=== PATIENT | female | born 2000 | race African-American/Black ===

== ENCOUNTER 2020-06-16 00:32 | Inpatient (IN) ==
[2020-06-16] MEDS ORDERED: ONDANSETRON 4 MG/2 ML VIAL IV PRN (01:43)
[2020-06-16 02:13] LABS: Basophils % 0.4 % (0.0-0.8); Eosinophils # 0.2 10*3/uL (0.0-0.87); Eosinophils % 2.2 % (0.00-10.9); Hematocrit 39.9 VOL% (35.7-47.0); Hemoglobin 12.7 GM/DL (12.0-16.0); Immature Granulocytes % 1.7 %; Immature Granulocytes Absolute 0.13 #; Lymphocytes # 2.3 10*3/uL (1.4-4.0); Lymphocytes % 29.7 % (21.3-54.2); Mean Corpuscular HGB Conc 31.8 GM/DL (32-36); Mean Corpuscular Volume 97.3 FL (87-102); Mean Platelet Volume 10.8 FL (9.6-12.0); Monocytes % 13.8 % (1.7-12.7); Neutrophils % 52.2 % (38.7-73.9); Platelet Count 182 T/CUMM (130-400); Red Cell Distribution Width 13.7 % (9.3-17.3); White Blood Count 7.8 T/CUMM (4-12)
[2020-06-16 02:30] LABS: Alanine Aminotransferase 23 U/L (13-56); Albumin 2.9 G/DL (3.4-5.0); Alkaline Phosphatase 235 U/L (45-117); Aspartate Amino Transferase 19 U/L (0-37); Bilirubin,Total < 0.39 MG/DL (0.2-1.0); Blood Urea Nitrogen 4 MG/DL (7-18); Calcium 9.1 MG/DL (8.5-10.1); Carbon Dioxide 24 MMOL/L (21-32); Estimated Glom Filtration Rate 157 ML/MIN; Glucose 99 MG/DL (74-106); Osmolality,Calculated 266.1 MOS/KG (273-304); Potassium 4.9 MMOL/L (3.5-5.1); Sodium 135 MMOL/L (136-145); Total Protein 7.1 G/DL (6.4-8.2)
[2020-06-16] MEDS: LACTATED RINGERS 1,000 ML IV SCH ×3 (08:35→14:30)
[2020-06-16] MEDS ORDERED: CITRIC ACID/SODIUM CITRATE 30 ML UDCUP PO ONE (09:04)
[2020-06-16] MEDS ORDERED: FAMOTIDINE 20 MG/2 ML VIAL IV ONE (09:04)
[2020-06-16] MEDS ORDERED: LACTATED RINGERS 1,000 ML IV ONE (09:04)
[2020-06-16] MEDS ORDERED: NALOXONE 0.4 MG/ML VIAL IV PRN (09:04)
[2020-06-16] MEDS ORDERED: ePHEDrine 50 MG/ML VIAL IV PRN (09:04)
[2020-06-16] MEDS ORDERED: BUTORPHANOL 1 MG/ML VIAL IV ONE (09:08)
[2020-06-16] MEDS ORDERED: BUTORPHANOL 1 MG/ML VIAL ONE (09:11)
[2020-06-16] MEDS ORDERED: fentaNYL 2 MCG/ROPIV 0.2% EPID 100 ML EPIDURAL SCH (09:30)
[2020-06-16] MEDS ORDERED: OXYTOCIN/LR 20 UNIT/1,000 ML BAG IV SCH (12:00)
[2020-06-16 12:48] LABS: Bilirubin,Urine Negative (Negative); Blood, Urine Negative (Negative); Glucose,Urine (UA) Negative (Negative); Ketones,Urine Negative (Negative); Mucus,Urine Occasional /LPF (Occasional); Nitrite,Urine Negative (Negative); Protein,Urine Negative; Urine Appearance CLEAR (Clear); Urine Color Colorless (Yellow); Urine Specific Gravity 1.004 (1.001-1.035); Urine Urobilinogen < 2.0 EU/DL (0.2-1.0)
[2020-06-16] MEDS ORDERED: miSOPROStoL 200 MCG TABLET ONE (16:51)
[2020-06-16] MEDS ORDERED: CARBOPROST TROMETHAMINE 250 MCG/ML AMP IM ONE (16:51)
[2020-06-16] MEDS ORDERED: METHYLERGONOVINE 0.2 MG/1 ML AMP ONE (16:51)
[2020-06-16] MEDS ORDERED: OXYTOCIN/LR 20 UNIT/1,000 ML BAG IV ONE ×2 (16:51→21:31)
[2020-06-16] MEDS ORDERED: TRANEXAMIC ACID 1,000 MG/10 ML VIAL ONE (16:51)
[2020-06-16 18:48] LABS: Cord Venous Blood HCO3 20.5 MMOL/L; Cord Venous Blood PCO2 41.5 MMHG; Cord Venous Blood PO2 32.2
[2020-06-16] MEDS ORDERED: RHO(D) IMMUNE GLOBULIN 300 MCG SYRINGE IM ONE (21:31)
[2020-06-16] MEDS ORDERED: oxyCODONE/ACETAMINOPHEN 5-325 MG TABLET PO PRN (21:31)
[2020-06-16] MEDS ORDERED: HYDROCORTISONE 2.5% RECTAL CREAM 30 GM TUBE TOP PRN (21:31)
[2020-06-16] MEDS ORDERED: BENZOCAINE 20%/MENTHOL 0.5% SPRAY 56 GM CAN TOP PRN (21:31)
[2020-06-16] MEDS ORDERED: ACETAMINOPHEN 325 MG TABLET PO PRN (21:31)
[2020-06-16] MEDS ORDERED: DIPH/TET/ACEL PERT BOOSTER VACCINE 0.5 ML VIAL IM ONE (21:31)
[2020-06-16] MEDS ORDERED: WITCH HAZEL PADS 100/JAR TOP PRN (21:31)
[2020-06-16] MEDS ORDERED: LANOLIN 50% CREAM 0.3 OZ TUBE TOP PRN (21:31)
[2020-06-16] MEDS ORDERED: MEASLES/MUMPS/RUBELLA VACCINE 0.5 ML VIAL SUBCUT ONE (21:31)
[2020-06-16] MEDS ORDERED: BISACODYL 10 MG SUPP RECTAL PRN (21:31)
[2020-06-16] MEDS: IBUPROFEN 800 MG TABLET PO PRN (21:46)
[2020-06-16] MEDS: DOCUSATE SODIUM 100 MG CAPSULE PO SCH (21:46)
[2020-06-16] MEDS: oxyCODONE/ACETAMINOPHEN 5-325 MG TABLET PO PRN (23:51)
[2020-06-17 06:09] LABS: Basophils % 0.3 % (0.0-0.8); Eosinophils # 0.1 10*3/uL (0.0-0.87); Eosinophils % 0.4 % (0.00-10.9); Hematocrit 35.1 VOL% (35.7-47.0); Hemoglobin 11.5 GM/DL (12.0-16.0); Immature Granulocytes % 0.9 %; Immature Granulocytes Absolute 0.15 #; Lymphocytes # 2.1 10*3/uL (1.4-4.0); Lymphocytes % 13.2 % (21.3-54.2); Mean Corpuscular HGB Conc 32.8 GM/DL (32-36); Mean Corpuscular Volume 95.6 FL (87-102); Mean Platelet Volume 11.2 FL (9.6-12.0); Monocytes % 10.8 % (1.7-12.7); Neutrophils % 74.4 % (38.7-73.9); Platelet Count 169 T/CUMM (130-400); Red Blood Count 3.67 MC/CUMM (3.8-5.5); Red Cell Distribution Width 13.9 % (9.3-17.3); White Blood Count 15.8 T/CUMM (4-12)
[2020-06-17] MEDS: oxyCODONE/ACETAMINOPHEN 5-325 MG TABLET PO PRN ×2 (08:00→13:53)
[2020-06-17] MEDS: IBUPROFEN 800 MG TABLET PO PRN ×3 (08:00→23:33)
[2020-06-17] MEDS: DOCUSATE SODIUM 100 MG CAPSULE PO SCH ×2 (08:37→20:23)
[2020-06-18] MEDS: DOCUSATE SODIUM 100 MG CAPSULE PO SCH (09:10)
[2020-06-18] MEDS: IBUPROFEN 800 MG TABLET PO PRN (09:10)
[2020-06-18 12:10] VITALS: BP 121/84
== END 2020-06-18 12:10 | disposition home or self-care (01) | DRG 560 ==
LOC: N.LD 00:32 → N.OB 21:00
PROVIDERS: ADMIT Obstetrics & Gynecology; ATTEND Obstetrics & Gynecology